=== PATIENT | male | born 1995 | race Caucasian/White ===

== ENCOUNTER 2019-10-25 13:10 | Inpatient (IN) | payer MEDICAID ==
[~2019-10-25] VITALS: Ht 175.3 cm; Wt 63.5 kg
[2019-10-25] VITALS (7 sets, daily range): BP systolic 100–119; BP diastolic 65–95
--- NOTE | 2019-10-25 | NUR ---
RN NOTES, RECEIVED A CALL FROM [facility] POISON CONTROL REGARDING PATIENT CONDITION AND THE COMPLETION OF MYCOMIST IV FOR ACETAMINOPHEN TOXICITY, PER HER SUPPOSED TO BE 3X DOSES, REPORTED TO HER THAT PATIENT RECEIVED ONLY THE LOADING DOSE IN ER, SHE REPLIED WITH THE PROTOCOL THAT WE SUPPOSE TO FOLLOW, CONTACTED SHAWN TIMBER SURVEYOR AND HE AGREED TO PROCEED WITH ORDERS, LOADING DOSE WILL BE 150MG/KG IN 200ML D5W OVER 1H, THE SECOND INFUSION 50MG/KG IN 500ML D5W OVER 4HRS, AND THE LAST INFUSION 100MG/KG IN 1L IN D5W OVER 16HRS, ONE HOUR PRIOR TO THE LAST INFUSION, LABS FOR ACETAMINOPHEN LEVEL, LIVER ENZYMES, PT/INR NEED TO BE DONE, IF ACETAMINOPHEN LEVEL >10 AND LIVER ENZYMES INCREASING REPEAT THE LAST INFUSION OVER 16HRS, IF ACETAMINOPHEN LEVEL <10 NO NEED TO TREAT, NOTED AND CARRIED OUT. Addendum: 10/26/19 at 0219 by MANUEL SIDHU RN WRONG TIME, WRONG ENTRY
--- NOTE | 2019-10-25 13:13 | NUR ---
SUICIDE PRECAUTIONS IMPLEMENTED
--- NOTE | 2019-10-25 13:21 | NUR ---
frm home, per report, "suicidal" took wine, modelo, tylenol es unknown amount, xanax unknown dose and paint thinner. verbally responsive. DENIES ANY MEDICAL COMPLAINTS AT THIS TIME. NO ACUTE DISTRESS NOTED. INITIALLY COOPERATIVE, BECOMING INCREASINGLY AGITATED. ASKING FOR XANAX. RESP EVEN AND UNLABORED ON RA. [employer] AT BEDSIDE. SEEN BY MD, AWAITING ORDERS.
[2019-10-25] MEDS ORDERED: ONDANSETRON HCL/PF 4 MG/2 ML VIAL ONE (13:28)
--- NOTE | 2019-10-25 13:29 | NUR ---
CALLED POISON CONTROL.
[2019-10-25] MEDS ORDERED: ONDANSETRON HCL/PF 4 MG/2 ML VIAL IV ONE (13:30)
[2019-10-25] MEDS ORDERED: IV NS 0.9% 1,000 ML BAG IV ONE (13:30)
--- NOTE | 2019-10-25 13:46 | NUR ---
IV LINE ESTABLISHED, BLOOD DRAWN AND SENT TO STAT LAB. IV MEDS GIVEN AND IVF INFUSING. PT LOBO WELL.
--- NOTE | 2019-10-25 13:55 | NUR ---
DR HALLMAN AT BEDSIDE
[2019-10-25 13:56] LABS: BASOPHILS % (AUTO) 0.9 % (0.0-2.0); EOSINOPHILS % (AUTO) 1.7 % (0.0-6.0); HEMATOCRIT 50 % (39-51); HEMOGLOBIN 16.7 g/dL (13.5-17.5); LYMPHOCYTES # (AUTO) 1.4 /CMM (0.8-4.8); LYMPHOCYTES % (AUTO) 35.2 % (20.0-44.0); MEAN CORPUSCULAR HGB CONC 34 g/dl (31.0-36.0); MEAN CORPUSCULAR VOLUME 95 fL (80-96); MONOCYTES # (AUTO) 0.4 /CMM (0.1-1.30); MONOCYTES % (AUTO) 9.8 % (2.0-12.0); NEUTROPHILS # (AUTO) 2.1 /CMM (1.8-8.9); NEUTROPHILS % (AUTO) 52.4 % (43.0-81.0); PLATELET COUNT (AUTO) 268 /CMM (150-450); RED BLOOD CELL COUNT(AUTO) 5.24 MIL/uL (4.5-6.0)
[2019-10-25 14:04] LABS: ALBUMIN 4.4 g/dL (3.4-5.0); BILIRUBIN,DIRECT 0.1 mg/dL (0.0-0.2); BILIRUBIN,TOTAL 0.4 mg/dL (0.2-1.0); CALCIUM, SERUM 9.2 mg/dL (8.5-10.1); CREATININE 0.9 mg/dL (0.6-1.3); POTASSIUM 4.6 mmol/L (3.5-5.1); TOTAL PROTEIN, SERUM 7.7 g/dL (6.4-8.2)
[2019-10-25 14:06] LABS: SALICYLATE 1.3 mg/dL (2.8-20.0)
--- NOTE | 2019-10-25 14:13 | NUR ---
URINE SENT TO STAT LAB
[2019-10-25] MEDS ORDERED: LORAZEPAM INJ 2 MG/ML VIAL ONE (14:18)
--- NOTE | 2019-10-25 14:18 | NUR ---
TREATED IV CETOSYSTINE 21 HOUR COURSE LOADING DOSE 150 MG PER KILO 200 ML D5W 1 HOUR 50MG PER KILO 500 ML D5W OVER 4 HOURS 100 MG PER KILO 1 LITER D5W OVER 16 HOURS REAPEAT TYLENOL BEFORE LAST INFUSION HOUR 15 TYLENOL WITH LIVER AND I&R IF TYLENOL OR LIVER INCREASE REPEART 16 HOUR DOSE
[2019-10-25 14:21] LABS: APPEARANCE,URINE Clear (CLEAR); BILIRUBIN,URINE Negative (NEGATIVE); BLOOD, URINE Trace-lysed Ery/uL (NEGATIVE); COLOR,URINE Yellow (YELLOW); KETONES,URINE Negative (NEGATIVE); LEUKOCYTE ESTERASE ,URINE Negative (NEGATIVE); NITRITE, URINE Negative (NEGATIVE); PH,URINE 6.5 (5.0-8.0); PROTEIN,URINE 30 mg/dl (NEGATIVE); UGLUCOSE Negative (NEGATIVE); UROBILINOGEN,URINE 0.2 EU/dL (0.2)
[2019-10-25 14:26] LABS: BACTERIA,URINE None seen /HPF (None Seen); RBC,URINE 0-2 /HPF (0-2); SQUAMOUS EPITHELIAL CELL,UR None Seen /HPF (None Seen); WBC,URINE 0-2 /HPF (0-3)
[2019-10-25] MEDS ORDERED: ACETYLCYSTEINE IV ONE (14:30)
[2019-10-25] MEDS ORDERED: D5W IV ONE (14:30)
[2019-10-25] MEDS ORDERED: LORAZEPAM INJ 2 MG/ML VIAL IV ONE (14:30)
--- NOTE | 2019-10-25 14:45 | NUR ---
CALLED PHARMACY FOR MUCOMYST ORDER
--- NOTE | 2019-10-25 15:02 | NUR ---
PT RESTING COMFORTABLY IN BED. NO ACUTE DISTRESS NOTED. VSS. WILL CONT TO MONITOR.
--- NOTE | 2019-10-25 15:18 | NUR ---
NURSING SUP GAVE ICU BED 250.
--- NOTE | 2019-10-25 15:30 | NUR ---
PAGED [facility].
--- NOTE | 2019-10-25 15:51 | NUR ---
REPORT GIVEN TO VICKEY VIDAL FORM ICU 250
--- NOTE | 2019-10-25 16:17 | NUR ---
[facility]
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
[2019-10-25] MEDS ORDERED: MAG HYDROX/AL HYDROX/SIMETH 30 ML UDC PO PRN (17:30)
[2019-10-25] MEDS ORDERED: ONDANSETRON HCL/PF 4 MG/2 ML VIAL IVP PRN (17:30)
[2019-10-25] MEDS ORDERED: MAGNESIUM HYDROXIDE 30 ML UDC PO PRN (17:30)
--- NOTE | 2019-10-25 17:30 | NUR ---
RN NOTES DR. LLOYD WANTS PT TO BE SEEN BY CRISIS TEAM. FACE SHEET FAXED TO [employer], PSYCH CONSULT HAS BEEN ORDERED.
[2019-10-25] MEDS: IV D5/ 0.9% NACL 1,000 ML IV PRN (18:09)
[2019-10-25] MEDS: FOLIC ACID 1 MG TABLET PO SCH (18:09)
[2019-10-25] MEDS: THIAMINE HCL 100 MG TABLET PO SCH (18:09)
[2019-10-25] MEDS: ALPRAZOLAM 1 MG TABLET PO ONE ×2 (19:02→22:01)
--- NOTE | 2019-10-25 19:20 | NUR ---
RN CLOSING NOTES PATIENT IS RESTING IN BED AT THIS TIME. PT IS TALKING TO FAMILY MEMBERS AND IS VISUALLY UPSET AND AGITATED. KEEPS STATING "I WANNA GET THE F OUT OF HERE" EXPLAINED TO THE PT THAT HE HAS A PSYCH EVAL TOMORROW. STILL WANTS TO LEAVE, PT IS NOT BEING COMBATIVE. NO ACUTE CHANGES OCCURRED THROUGHOUT THE SHIFT, VITAL SIGNS ARE STABLE, PT NEEDS HAVE BEEN MET. SAFETY MEASURES HAVE BEEN IMPLEMENTED, CALL LIGHT IS WITHIN REACH, BED IS IN LOWEST AND LOCKED POSITION, SIDE RAILS UP X2, PT HAS BEEN ENDORSED TO NIGHTSHIFT RN FOR JORGE ALBERTO.
--- NOTE | 2019-10-25 19:40 | NUR ---
RN OPENING NOTES, PATIENT IN BED AGITATED, VICKEY VIDAL GOT A X1 ORDER FOR ATIVAN 1MG NOW, BUT KEEPS SAYING THAT HE NEEDS 2MG ATIVAN PLUS XANAX AND PROMETHAZINE THAT HE TAKES FOR COUGH, KEEPS STAYING THAT HE WANTS TO LEAVE HOSPITAL, EXPLAINED TO PATIENT THAT WE WILL CALL DR TO ASK FOR REQUEST MEDICATIONS, AND THAT HE WILL HAVE PSYCH EVALUATION TOMORROW, PATIENT KEEP REPEATING THAT HE NEEDS PRESCRIPTION FOR MEDICATIONS AND WANT TO LEAVE HOME, EXPLAINED TO PATIENT THAT IF HE DECIDES TO LEAVE AMA HE WILL NOT HAVE ANY PRESCRIPTION MEDICATIONS PER PROTOCOL, CHARGE NURSE IN ROOM EXPLAINING HIM THE OPTIONS, HE AGREED FOR US TO CALL DR, SAFETY MEASURES HAVE BEEN IMPLEMENTED, CLOSING MONITORING, CALL LIGHT IS WITHIN REACH, BED IS LOCKED POSITION, SIDE RAILS UP X2, WILL CONTINUE TO MONITOR CLOSELY.
--- NOTE | 2019-10-25 20:18 | NUR ---
RN NOTES, CALLED ESTIMATOR BINDING MAURILIO ESCOBAR AND REPORT ABOUT PATIENT'S REQUEST FOR MEDICATIONS, AND PER SHWAN NO ORDER FOR THOSE MEDICATIONS AT THIS TIME, HE CAN TAKE THE ATIVAN 1MG ORDERED BEFORE, AND HE CANNOT LEAVE AMA, AND CALL PET CRISIS TEAM, NOTED AND CARRIED OUT.
--- NOTE | 2019-10-25 20:25 | NUR ---
RN NOTES, CONTACT CASING MATERIAL WEIGHER WINSOME AND INFORMED ABOUT SITUATION AND THE NEED TO CALL PET CRISIS TEAM, SHE AWARE OF SITUATION.
--- NOTE | 2019-10-25 20:40 | NUR ---
RN NOTES, CALLED SHIRAZ AT AND INFORMED ABOUT ESCOBAR REQUEST FOR EVALUATION OF PATIENT, COMPLETE REPORT GIVEN TO SHIRAZ ABOUT PATIENT AND SHE STATED SHE WILL BE HERE WITHIN AN HOUR TO PLACE PATIENT IN HOLD, WILL CONTINUE TO MONITOR CLOSELY.
--- NOTE | 2019-10-25 22:00 | NUR ---
RN NOTES, SHIRAZ FROM PET TEAM IN ROOM WITH PATIENT AT THIS TIME, AFTER A LONG TALK PATIENT AGREED TO BE COMPLIANT WITH MEDICAL TREATMENT AND BE PATIENT UNTIL PSYCH EVALUATION TOMORROW, WILL CONTINUE TO MONITOR CLOSELY.
[2019-10-26] VITALS (18 sets, daily range): BP systolic 90–144; BP diastolic 44–94
--- NOTE | 2019-10-26 | NUR ---
RN NOTES, RECEIVED A CALL FROM [facility] POISON CONTROL REGARDING PATIENT CONDITION AND THE COMPLETION OF MYCOMIST IV FOR ACETAMINOPHEN TOXICITY, PER HER SUPPOSED TO BE 3X DOSES, REPORTED TO HER THAT PATIENT RECEIVED ONLY THE LOADING DOSE IN ER, SHE REPLIED WITH THE PROTOCOL THAT WE SUPPOSE TO FOLLOW, CONTACTED SHAWN SUPERVISOR PAIRING AND INSPECTING AND HE AGREED TO PROCEED WITH ORDERS, LOADING DOSE WILL BE 150MG/KG IN 200ML D5W OVER 1H, THE SECOND INFUSION 50MG/KG IN 500ML D5W OVER 4HRS, AND THE LAST INFUSION 100MG/KG IN 1L IN D5W OVER 16HRS, ONE HOUR PRIOR TO THE LAST INFUSION, LABS FOR ACETAMINOPHEN LEVEL, LIVER ENZYMES, PT/INR NEED TO BE DONE, IF ACETAMINOPHEN LEVEL >10 AND LIVER ENZYMES INCREASING REPEAT THE LAST INFUSION OVER 16HRS, IF ACETAMINOPHEN LEVEL <10 NO NEED TO TREAT, NOTED AND CARRIED OUT.
[2019-10-26] MEDS ORDERED: ACETYLCYSTEINE IV SCH ×3 (00:30→06:30)
[2019-10-26] MEDS ORDERED: D5W IV SCH ×3 (00:30→06:30)
[2019-10-26] MEDS ORDERED: ACETYLCYSTEINE IV 6,000 MG/30 ML VIAL IV ONE (00:32)
[2019-10-26 05:05] LABS: BASOPHILS % (AUTO) 0.8 % (0.0-2.0); EOSINOPHILS % (AUTO) 1.4 % (0.0-6.0); HEMATOCRIT 46 % (39-51); HEMOGLOBIN 15.1 g/dL (13.5-17.5); LYMPHOCYTES # (AUTO) 1.3 /CMM (0.8-4.8); LYMPHOCYTES % (AUTO) 28.1 % (20.0-44.0); MEAN CORPUSCULAR HGB CONC 33 g/dl (31.0-36.0); MEAN CORPUSCULAR VOLUME 96 fL (80-96); MONOCYTES # (AUTO) 0.4 /CMM (0.1-1.30); MONOCYTES % (AUTO) 8.5 % (2.0-12.0); NEUTROPHILS # (AUTO) 2.9 /CMM (1.8-8.9); NEUTROPHILS % (AUTO) 61.2 % (43.0-81.0); PLATELET COUNT (AUTO) 246 /CMM (150-450); RED BLOOD CELL COUNT(AUTO) 4.77 MIL/uL (4.5-6.0); WHITE BLOOD COUNT (AUTO) 4.7 K/uL (4.3-11.0)
[2019-10-26 05:22] LABS: ALBUMIN 3.3 g/dL (3.4-5.0); BILIRUBIN,TOTAL 0.4 mg/dL (0.2-1.0); CALCIUM, SERUM 8.3 mg/dL (8.5-10.1); CREATININE 0.7 mg/dL (0.6-1.3); POTASSIUM 3.8 mmol/L (3.5-5.1); TOTAL PROTEIN, SERUM 6.1 g/dL (6.4-8.2)
[2019-10-26 05:42] LABS: THYROID STIMULATING HORMONE 0.625 uIU/mL (0.358-3.74)
[2019-10-26] MEDS: IV D5/ 0.9% NACL 1,000 ML IV PRN ×2 (06:44→16:38)
--- NOTE | 2019-10-26 07:17 | NUR ---
RN NOTES, PATIENT IN BED SLEEPING AT THIS TIME, NO EPISODES OF AGITATION EXHIBITED DURING THE NIGHT, LOADING DOSE AND SECOND DOSE OF MUCOMYST IV FOR ACETAMINOPHEN TOXICITY ADMINISTERED, AND CALLED THE PHARMACY AT 0640 THIS MORNING SPOKE TO TRENT TO MIX THE LAST INFUSION THAT WILL BE ADMINISTERED OVER 16HRS, ENDORSED TO VICKEY MORTENSEN THAT LABS FOR ACETAMINOPHEN LEVEL, LIVER ENZYMES, PT/INR, NEED TO BE DONE ONE HOUR PRIOR INFUSION DONE, AFTER THAT IF ACETAMINOPHEN LEVEL IS > 10 AND LIVER ENZYMES ARE INCREASING, REPEAT THE LAT INFUSION OVER 16HRS AGAIN, BUT IF THE ACETAMINOPHEN LEVEL IS <10 AND LIVER ENZYMES NOT INCREASING, THERE'S NO NEED TO TREAT, WILL HAVE PSYCH EVALUATION TODAY, CONTINUE ON D5 NA AT 125ML/HR, SITE PATENT AND INTACT, ALL NEEDS PROVIDED, ENDORSED TO BALBINA WILSON FOR CONTINUATION OF CARE.
--- NOTE | 2019-10-26 07:20 | NUR ---
INTERIOR DESIGN PROGRAM CHAIR OPENING NOTE RECEIVED REPORT FROM [facility] SHIFT NURSE. PT AWAKE IN BED, ALERT AND ORIENTED X 4, ON ROOM AIR, SATURATING WELL, RESPIRATIONS EVEN AND UNLABORED, NO SIGNS OF RESPIRATORY DISTRESS NOTED. SINUS RHYTHM ON MONITOR. IV SITE ON RIGHT AC G20 INTACT, PATENT, INFUSING D5 NS AT 125CC/HR, NO SIGNS OF INFILTRATION NOTED. BED IN LOW POSITION, LOCKED, CALL LIGHT WITHIN REACH. DENIES ANY SI AT THIS TIME. WILL CONTINUE TO MONITOR.
--- NOTE | 2019-10-26 07:27 | NUR ---
RN NOTES, CALLED TRENT AGAIN AT THIS TIME, STATED INFUSION FOR MUCOMYST IV IS READY, BALBINA RN TO CONSTRUCTION FLAGGER INFUSION.
[2019-10-26] MEDS: FOLIC ACID 1 MG TABLET PO SCH (08:03)
[2019-10-26] MEDS: PANTOPRAZOLE 40 MG TABLET.DR PO SCH (08:03)
[2019-10-26] MEDS: THIAMINE HCL 100 MG TABLET PO SCH (08:03)
--- NOTE | 2019-10-26 09:00 | NUR ---
PSYCH BY BEDSIDE FOR CONSULT
--- NOTE | 2019-10-26 12:25 | NUR ---
RECEIVED CALL FROM POISON CONTROL CENTER, IF ACETAMINOPHEN LEVEL IS UNDETECTABLE PT CAN BE DISCHARGED.
--- NOTE | 2019-10-26 12:35 | NUR ---
SOCIAL SERVICE NOTE: SW contacted charge nurse after being notified that pt had overdosed on Tylenol and is now in ICU. Per charge nurse a crisis evaluation was made due to pt wanting to leave AMA. Nurse states that pt contracted for safety and a psych consult was made. Charge nurse states psychiatrist Dr. Cisneros evacuated pt this morning. Per RN, pt is doing better, he is alert and awake.
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
--- NOTE | 2019-10-26 15:28 | NUR ---
SOCIAL SERVICE NOTE: SW received a call from Art, crisis team clinician who reports pt does not meet criteria for 5150 hold.
--- NOTE | 2019-10-26 15:56 | NUR ---
SOCIAL SERVICE ASSESSMENT: ANGI spoke with pt over the phone due to current COVID-19 restrictions and pt being in ICU. Pt states that he can be discharged to his grandma Patricia's house ([phone]). ANGI contacted pts grandmother Patricia to confirm pt is able to discharge to her home, she states pt is not able to live with her due to pts substance abuse issues. ANGI informed pt that his grandmother is unable to take him in and he understood. ANGI provided pt with discharge options and presented pt with the possibility of accepting voluntary psychiatric treatment at [facility]. Pt refused stating he is afraid to be in a controlled setting as he has been to custodial before and does not like the feeling of being in a cage. Pt states that he has a hard time accepting he needs help and that he is not ready for treatment at this time. Pt denies suicidal/ homicidal ideation and denied visual/auditory hallucinations. Pt stated that he is homeless and that he wishes to be discharged to a homeless senior care. ANGI provided RN with homeless resources ([facility] of the [facility] senior care citrus picker time and location) and also directed her to provide pt with a TAP CARD and sign homeless waiver once medically cleared for discharge. RN stated that pts discharge is pending as they are waiting on his labs.
--- NOTE | 2019-10-26 16:38 | NUR ---
TRANSFERRED PT TO ROOM 310, GAVE REPORT TO RN FOR JORGE ALBERTO
--- NOTE | 2019-10-26 16:40 | NUR ---
M/S RN NOTES RECEIVED REPORT FROM VICKEY SANCHEZ. PATIENT AWAKE ALERT AND ORIENTED X4, NO RESPIRATORY DISTRESS, NO C/O PAIN AT THIS TIME. PATIENT WITH NO SI/HI AT THIS TIME. SITTER AT BEDSIDE. SAFETY PRECAUTIONS IN PLACE. SKIN WARM TO TOUCH, IV ACCESS SITE ON THE RAC, INTACT AND PATENT, PATIENT'S NEEDS ATTENDED, ORDERS CARRIED OUT. BED ON LOWEST, LOCKED POSITION, CALL LIGHT WITHIN REACH. WILL CONTINUE TO MONITOR.
--- NOTE | 2019-10-26 19:33 | NUR ---
M/S RN NOTES PATIENT AWAKE IN BED, SITTER AT BEDSIDE. SAFETY PRECAUTIONS IN PLACE. PATIENT WITH NO SI/HI AT THIS TIME. PATIENT IN NO RESPIRATORY DISTRESS, NO C/O PAIN AT THIS TIME. SKIN WARM TO TOUCH, IV ACCESS SITE INTACT AND PATENT. PATIENT'S NEEDS ATTENDED, BED ON LOWEST LOCKED POSITION, CALL LIGHT WITHIN REACH. WILL ENDORSE TO ONCOMING NURSE.
--- NOTE | 2019-10-26 20:00 | NUR ---
RN NOTES RECEIVED PT AWAKE ON BED, A/OX4, AMBULATORY, SITTER AT BEDSIDE, DENIES PAIN, NO SOB, DESI LIGHT WITHIN REACH, [id number], CONTINUE TO MONITOR
[2019-10-27 00:29] LABS: ALBUMIN 3.4 g/dL (3.4-5.0); BILIRUBIN,DIRECT 0.1 mg/dL (0.0-0.2); BILIRUBIN,TOTAL 0.4 mg/dL (0.2-1.0); TOTAL PROTEIN, SERUM 6.1 g/dL (6.4-8.2)
--- NOTE | 2019-10-27 03:15 | NUR ---
RN NOTES CALLED POISON CONTROL AND SPOKE TO JEFFERSON REGARDING PATIENT LAB RESULT . EVERYTHING IS NORMAL EXCEPT FOR TYLENOL LEVEL OF 13, CLARIFY IF WERE STILL GOING TO GIVE ANOTHER BAG OF MUCOMYST. PER JEFFERSON GIVE ANOTHER BAG OF MUCOMYST WITH SAME RATE TO RUN FOR 16 HRS.
[2019-10-27] MEDS: IV D5/ 0.9% NACL 1,000 ML IV PRN ×2 (03:34→14:11)
--- NOTE | 2019-10-27 04:00 | NUR ---
RN NOTES SPOKE TO NAPOLEON ESCOBAR-VIJI AND INFORMED HIM REGARDING PER POSION CONTROL WE NEED TO GIVE ANOTHER BAG OF MUCOMYS, NAPOLEON ESCOBAR GAVE AN ORDER , ORDER NOTED AND CARRIED OUT
[2019-10-27] MEDS ORDERED: D5W IV SCH (04:30)
[2019-10-27] MEDS ORDERED: ACETYLCYSTEINE IV SCH (04:30)
[2019-10-27] MEDS ORDERED: ACETYLCYSTEINE IV 6,000 MG/30 ML VIAL IV ONE (05:46)
--- NOTE | 2019-10-27 07:00 | NUR ---
RN NOTES AWAKE. [place] PAIN NO, SOB, MORNING CARE RENDERED, PT. NEEDS ATTENDED
--- NOTE | 2019-10-27 07:10 | NUR ---
MS RN NOTES PATIENT IN BED ALERT ORIENTED X 3. NO ACUTE DISTRESS NOTED. BREATHING UNLABORED. NO SI/HI IDEATION NOTED AT THIS TIME. SITTER AT BEDSIDE. SAFETY MEASURES IN PLACE. WILL CONTINUE TO MONITOR ACCORDINGLY.
[2019-10-27] MEDS: PANTOPRAZOLE 40 MG TABLET.DR PO SCH (07:48)
[2019-10-27 07:49] VITALS: BP 102/55
[2019-10-27] MEDS: FOLIC ACID 1 MG TABLET PO SCH (08:38)
[2019-10-27] MEDS: THIAMINE HCL 100 MG TABLET PO SCH (08:38)
[2019-10-27 15:38] VITALS: BP 106/62
--- NOTE | 2019-10-27 19:04 | NUR ---
MS RN NOTES PATIENT IN BED ALERT ORIENTED X 3. NO ACUTE DISTRESS NOTED. BREATHING UNLABORED. NO SI/HI IDEATION NOTED AT THIS TIME. SITTER AT BEDSIDE. NEEDS ATTENDED AND ANTICIPATED. SAFETY MEASURES IN PLACE. WILL ENDORSE TO NIGHT NURSE FOR CONTINUITY OF CARE
[2019-10-27] MEDS ORDERED: ACETYLCYSTEINE IV ONE (19:32)
[2019-10-27] MEDS ORDERED: D5W IV ONE (19:32)
--- NOTE | 2019-10-27 19:55 | NUR ---
MS RN NOTES PT IN BED A/O X 3, STABLE CONDITION AND NOT IN APPARENT DISTRESS. RESPIRATIONS EVEN AND UNLABORED. WILL CONT TO MONITOR.
[2019-10-27 20:00] VITALS: BP 118/60
--- NOTE | 2019-10-27 20:00 | NUR ---
FF UP LAB FOR ACETAMINOPHEN DRAW
--- NOTE | 2019-10-27 21:20 | NUR ---
POISON CONTROLLED CALLED RELAYED RECENT ACETAMINOPHEN LEVEL SPOKE TO LISA ORDERED LIVER FUNCTION TEST AND PT/INR STAT TO RUN ONE MORE HOUR MUCOMYST IV.
[2019-10-27 22:18] LABS: ALBUMIN 3.4 g/dL (3.4-5.0); BILIRUBIN,DIRECT 0.1 mg/dL (0.0-0.2); BILIRUBIN,TOTAL 0.5 mg/dL (0.2-1.0); TOTAL PROTEIN, SERUM 6.3 g/dL (6.4-8.2)
--- NOTE | 2019-10-27 22:27 | NUR ---
CALLED POISON CONTROL SPOKE TO LISA 117 RELAYED RECENT LIVER FUNCTION TEST AND PT/INR. PER LISA OK TO STOP MUCOMYST IV. NO NEW ORDERS AT THIS TIME. NOTED AND CARRIED OUT CLEARED FROM TOXICOLOGY
--- NOTE | 2019-10-27 22:47 | NUR ---
D/C MUCOMYST IV PER POISON CONTROL
[2019-10-28] MEDS: IV D5/ 0.9% NACL 1,000 ML IV PRN (03:36)
--- NOTE | 2019-10-28 06:09 | NUR ---
PT STABLE AND NOT IN DISTRESS, ALL NEEDS ATTENDED AND ANTICIPATED, KEPT CLEAN, DRY AND COMFORTABLE. NO C/OF PAIN NO SUICIDAL THOUGHTS AT THIS TIME. PT COOPERATIVE WITH PLAN OF CARE. SAFETY MEASURES AT ALL TIMES. WILL ENDORSE TO NEXT SHIFT POC.
[2019-10-28 07:55] VITALS: BP 104/71
--- NOTE | 2019-10-28 08:00 | NUR ---
MS RN OPENING NOTES Received Patient awake and resting in bed. A/O x 4. VS stable with no acute distress. Breathing even and unlabored on room air with no respiratory distress. Denies pain. No signs and symptoms of pain. 20g PIV on RAC clean, intact, patent and flushing well with D5NS infusing at 125ml/hr. Sitter at bedside. Safety precautions in place. Bed locked and set to lowest position with side rails x 2 up. All needs rendered at this time. Call light within reach. Will continue to monitor.
[2019-10-28] MEDS: THIAMINE HCL 100 MG TABLET PO SCH (08:33)
[2019-10-28] MEDS: PANTOPRAZOLE 40 MG TABLET.DR PO SCH (08:33)
[2019-10-28] MEDS: FOLIC ACID 1 MG TABLET PO SCH (08:33)
[2019-10-28 16:00] VITALS: BP 96/58
--- NOTE | 2019-10-28 17:00 | NUR ---
MS REAL ESTATE SALESPERSON NOTS Patient discharged for home at this time. Patient in stable condition. VS stable with no acute distress. Breathing even and unlabored on room air with no respiratory distress. Denies pain. Skin intact. Removed intact PIV on RAC. Discharge orders reviewed and explained to Patient. Provided long-term information and resources for homelessness. Patient verbalized understanding. Homeless waiver signed. Patient will follow up with PCP. All belongings with Patient. Escorted Patient to the Lobby for safety. Patient picked up by Sherron (girlfriend).
== END 2019-10-28 17:00 | disposition home or self-care (01) | DRG 817 ==
LOC: EDBD 13:12 → ER 13:12 → ICU 16:00 → MED 10-26 16:10
DX: T39.1X2A Poisoning by 4-Aminophenol derivatives, intentional self-harm, initial encounter (principal); F10.10 Alcohol abuse, uncomplicated; Y92.89 Other specified places as the place of occurrence of the external cause; F12.90 Cannabis use, unspecified, uncomplicated; F32.9 Major depressive disorder, single episode, unspecified; F41.9 Anxiety disorder, unspecified; Z56.0 Unemployment, unspecified; F19.10 Other psychoactive substance abuse, uncomplicated; Y90.6 Blood alcohol level of 120-199 mg/100 ml; F43.10 Post-traumatic stress disorder, unspecified
CPT/HCPCS: 36415; 80048-TC; 80053-TC; 80061-TC; 80076-TC; 80305; 81000-TC; 83735-TC; 84100-TC; 84443-TC; 85025-TC; 85610-TC; 87081-TC; G0378; G0480; J0132; J2060; J2405; J7030; J7042; J7060; J7070